=== PATIENT | male | born 1985 | race African-American/Black ===

== ENCOUNTER 2017-02-19 07:48 | Emergency (ER) | payer MEDICARE, MEDICAID ==
[2017-02-19] MEDS ORDERED: Ketorolac Tromethamine 30 MG/ML VIAL ONE (08:18)
== END 2017-02-19 08:48 | disposition home or self-care (01) ==
LOC: ERS 07:48
DX: K03.81 Cracked tooth (principal); K05.10 Chronic gingivitis, plaque induced; J45.909 Unspecified asthma, uncomplicated
CPT/HCPCS: 96372; J1885

== ENCOUNTER 2017-03-21 14:56 | Emergency (ER) | payer MEDICARE, MEDICAID ==
[2017-03-21] MEDS ORDERED: Ondansetron ODT 4 MG TAB ONE (15:46)
[2017-03-21] MEDS ORDERED: Ketorolac Tromethamine 30 MG/ML VIAL ONE (15:46)
[2017-03-21] MEDS ORDERED: Acetaminophen/Codeine 30-300mg Tablet ONE (16:07)
== END 2017-03-21 16:11 | disposition home or self-care (01) ==
LOC: ERS 14:56
DX: K03.81 Cracked tooth (principal); J45.909 Unspecified asthma, uncomplicated; Z79.899 Other long term (current) drug therapy
CPT/HCPCS: 96372; J1885; Q0162

== ENCOUNTER 2018-10-10 10:26 | Emergency (ER) | payer MEDICAID, MEDICARE, SELFPAY | END 2018-10-10 10:46 | disposition home or self-care (01) | LOC: ERS 10:26 | DX: R21 Rash and other nonspecific skin eruption (principal); I10 Essential (primary) hypertension; F41.9 Anxiety disorder, unspecified; F17.210 Nicotine dependence, cigarettes, uncomplicated | CPT/HCPCS: 99281 ==

== ENCOUNTER 2019-02-22 13:06 | Emergency (ER) | payer SELFPAY ==
--- NOTE | 2019-02-22 13:48 | RAD ---
EXAM: 3 views of the cervical spine HISTORY: Neck pain COMPARISON: None FINDINGS: AP, lateral, and open mouth odontoid views of the cervical spine shows normal height and al ignment of the vertebral bodies and intervertebral discs without fracture or subluxation. Mild degenerative changes are seen at C5/6 and C6/7. No prevertebral soft tissue swelling is seen. IMPRESSION: No evidence of acute cervical spine abnormality.
== END 2019-02-22 14:26 | disposition home or self-care (01) ==
LOC: ERS 13:06
DX: S16.1XXA Strain of muscle, fascia and tendon at neck level, initial encounter (principal); F31.9 Bipolar disorder, unspecified; F41.9 Anxiety disorder, unspecified; J45.909 Unspecified asthma, uncomplicated; I10 Essential (primary) hypertension; Z79.899 Other long term (current) drug therapy; X50.1XXA Overexertion from prolonged static or awkward postures, initial encounter
CPT/HCPCS: 72040

== ENCOUNTER 2019-04-12 09:27 | Emergency (ER) | payer SELFPAY ==
[2019-04-12 09:58] LABS: #Lymphocytes 0.6 thou/uL (1.20-3.40); #Monocytes 1.2 thou/uL (0.11-0.59); #Neutrophils 6.7 thou/uL (1.40-6.50); %Basophils 0.2 % (0.0-1.0); %Eosinophils 0.2 % (0.0-10.0); %Lymphocytes 7.2 % (21.0-51.0); %Monocytes 13.9 % (0.0-10.0); %Neutrophils 78.5 % (42.0-75.0); Hemoglobin 15.1 g/dL (14.0-18.0); Mean Corpuscular Hemoglobin 25.7 pg (27.0-31.0); Mean Corpuscular Volume 75.7 fL (78.0-98.0); Mean Platelet Volume 10.3 fL (7.4-10.4); Platelet Count 175 thou/uL (130-400); RBC Distribution Width 13.2 % (11.5-14.5); Red Blood Cell (RBC) Count 5.87 mill/uL (4.70-6.10); White Blood Cell (WBC) Count 8.6 thou/uL (4.8-10.8)
[2019-04-12] MEDS ORDERED: Ondansetron PF 4 MG/2 ML Vial ONE ×2 (09:58→09:59)
[2019-04-12] MEDS ORDERED: Acetaminophen 500 MG TAB ONE (09:58)
[2019-04-12 10:12] LABS: ALT (SGPT) 54 U/L (8-55); AST (SGOT) 42 U/L (5-34); Albumin 4.2 g/dL (3.5-5.0); Alkaline Phosphatase 56 U/L (40-110); Anion Gap 13 mmol/L (10-20); BUN (Urea Nitrogen) 12 mg/dL (8.9-20.6); Bilirubin, Total 0.5 mg/dL (0.2-1.2); CK (CPK) 153 U/L (30-200); Calc. Creatinine Clearance 0 mL/min (70-130); Calcium 9.3 mg/dL (7.8-10.44); Carbon Dioxide 27 mmol/L (22-29); Chloride 105 mmol/L (98-107); Estimated GFR-MDRD 76; Globulin 2.4 g/dL (2.4-3.5); Glucose 109 mg/dL (70-105); Magnesium 1.8 mg/dL (1.6-2.6); Potassium 4.2 mmol/L (3.5-5.1); Protein, Total 6.6 g/dL (6.0-8.3); Sodium 141 mmol/L (136-145)
[2019-04-12] MEDS ORDERED: Piperacillin/Tazobactam 4.5 GM VIAL ONE (11:10)
[2019-04-12 11:46] LABS: Bacteria/HPF None Seen HPF (None Seen); Bilirubin Negative (Negative); Blood, Urine Negative (Negative); Clarity Clear (Clear); Glucose, Urine (Dipstick) Normal (Negative); Leukocyte Negative Leu/uL (Negative); Nitrite Negative (Negative); Protein, Urine (Dipstick) 30 mg/dL (Neg-Trace); RBC/HPF 0-3 HPF (0-3); Squamous Epithelial 0-3 HPF (0-3); Urobilinogen 6 mg/dL (Less than 2); WBC/HPF 0-3 HPF (0-3)
--- NOTE | 2019-04-12 11:49 | RAD ---
XR Chest Pa Lat STANDARD HISTORY: Sepsis, cough, fever, shortness of breath, chest pain COMPARISON: 09/13/2015 FINDINGS: The heart size is normal. The lungs are well expanded without focal areas of consolidation, pneumothorax or pleural effusions. IMPRESSION: No radiographic evidence of acute cardiopulmonary process.
[2019-04-12 13:27] LABS: Troponin I 0.017 ng/mL (< 0.028)
== END 2019-04-12 14:19 | disposition home or self-care (01) ==
LOC: ERS 09:27
DX: J10.1 Influenza due to other identified influenza virus with other respiratory manifestations (principal); I10 Essential (primary) hypertension; J45.909 Unspecified asthma, uncomplicated; F41.9 Anxiety disorder, unspecified; F31.9 Bipolar disorder, unspecified
CPT/HCPCS: 36415; 71046; 80053; 81003; 81015; 82550; 83605; 83735; 84484; 85025; 85379; 87040; 87086; 87804; 93005; 96361; 96365; 96375; J2405; J2543

== ENCOUNTER 2021-09-10 08:50 | Emergency (ER) | payer SELFPAY ==
[2021-09-10] MEDS ORDERED: Dexamethasone 4 MG TAB ONE (09:59)
[2021-09-10] MEDS ORDERED: Ketorolac Tromethamine 30 MG/ML VIAL ONE (09:59)
== END 2021-09-10 10:27 | disposition home or self-care (01) ==
LOC: ERS 08:50
DX: J03.90 Acute tonsillitis, unspecified (principal); J45.909 Unspecified asthma, uncomplicated; I10 Essential (primary) hypertension
CPT/HCPCS: 96372; 99283; J1885; J8540

== ENCOUNTER 2022-02-14 14:48 | Emergency (ER) | payer SELFPAY ==
[2022-02-14] MEDS ORDERED: Ondansetron ODT 4 MG TAB ONE (21:49)
== END 2022-02-14 14:52 | disposition left against medical advice (07) ==
LOC: ERS 14:48
DX: Z53.21 Procedure and treatment not carried out due to patient leaving prior to being seen by health care provider (principal)
CPT/HCPCS: Q0162

== ENCOUNTER 2022-02-14 19:43 | Emergency (ER) | payer SELFPAY | END 2022-02-14 22:29 | disposition home or self-care (01) | LOC: ERS 19:43 | DX: R11.2 Nausea with vomiting, unspecified (principal); R05.9 Cough, unspecified; R19.7 Diarrhea, unspecified; Z20.822 Contact with and (suspected) exposure to COVID-19; I10 Essential (primary) hypertension; F17.210 Nicotine dependence, cigarettes, uncomplicated | CPT/HCPCS: 71045; U0003; U0005 ==

== ENCOUNTER 2023-10-20 19:58 | Emergency (ER) | payer OTHER, SELFPAY ==
[2023-10-20] MEDS ORDERED: Lidocaine 1% w/Epinephrine 1:100K 20 ML VIAL ONE (22:50)
[2023-10-20] MEDS ORDERED: Ibuprofen 800 MG TAB ONE (22:53)
[2023-10-20] MEDS ORDERED: Bacitracin 1 PK ONE (23:34)
== END 2023-10-20 23:40 | disposition home or self-care (01) ==
LOC: ERS 19:58
DX: S81.812A Laceration without foreign body, left lower leg, initial encounter (principal); I10 Essential (primary) hypertension; F17.210 Nicotine dependence, cigarettes, uncomplicated; W26.8XXA Contact with other sharp object(s), not elsewhere classified, initial encounter
CPT/HCPCS: 12032